=== PATIENT | female | born 1950 | race Caucasian/White ===

== ENCOUNTER 2017-09-16 05:05 | Emergency (ER) | payer MEDICARE ==
[2017-09-16 06:21] LABS: BILIRUBIN, URINE NEG (NEG); BLOOD, URINE NEG (NEG); GLUCOSE,URINE NEG (NEG); KETONE, URINE 10 mg/dL (NEG); MUCUS URINE FEW /lpf (OCC); NITRITE,URINE NEG (NEG); SQUAMOUS EPITHELIAL CELL URINE 1 /hpf (0-5); URINE COLOR YELLOW (YELLW/STRAW); URINE LEUKOCYTE ESTERASE NEG (NEG)
[2017-09-16 06:22] LABS: COMMENT (UR) CULT NOT INDICATED; CULTURE IF INDICATED CULT NOT INDICATED
[2017-09-16] MEDS: SODIUM CHLOR 0.9% 1000 ML INJ 1,000 ML IV (06:27)
[2017-09-16 06:34] LABS: BASOPHIL % 0.7 % (0.0-2.0); EOSINOPHIL # 0.1 TH/MM3 (0-0.4); EOSINOPHIL % 2.4 % (0.0-4.0); HEMO FLAGS DIFF FINAL; HEMOGLOBIN 13.7 GM/DL (11.6-15.3); LYMPH % 14.2 % (9.0-44.0); LYMPHOCYTE # 0.8 TH/MM3 (1.0-4.8); MEAN CELL VOLUME 80.6 FL (80.0-100.0); MEAN CORPUSCULAR HEMOGLOBIN 27.6 PG (27.0-34.0); MEAN CORPUSCULAR HGB CONC 34.2 % (32.0-36.0); MEAN PLATELET VOLUME 7.9 FL (7.0-11.0); MONO % 9.1 % (0.0-8.0); MONOCYTE # 0.5 TH/MM3 (0-0.9); NEUT % 73.6 % (16.0-70.0); PLATELET COUNT 222 TH/MM3 (150-450); RED BLOOD COUNT 4.97 MIL/MM3 (4.00-5.30); RED CELL DISTRIBUTION WIDTH 15.2 % (11.6-17.2); WHITE BLOOD COUNT 5.5 TH/MM3 (4.0-11.0)
[2017-09-16] MEDS: ONDANSETRON HCL 4 MG/2 ML VIAL IV (06:34)
[2017-09-16 07:30] LABS: BLOOD UREA NITROGEN 8 MG/DL (7-18); CREATININE 0.78 MG/DL (0.50-1.00); GLOMERULAR FILTRATION RATE 74 ML/MIN (>89); GLUCOSE,RANDOM 120 MG/DL (74-106); TOTAL PROTEIN 7.6 GM/DL (6.4-8.2)
[2017-09-16 07:31] LABS: ALKALINE PHOSPHATASE 80 U/L (45-117); ALT (GPT) 70 U/L (10-53); ANION GAP 8 MEQ/L (5-15); AST (GOT) 45 U/L (15-37); BICARBONATE 24.3 MEQ/L (21.0-32.0); C-REACTIVE PROTEIN 0.77 MG/DL (0.00-0.30); CALCIUM 8.7 MG/DL (8.5-10.1); CHLORIDE 108 MEQ/L (98-107); LIPASE 103 U/L (73-393); MAGNESIUM 2.2 MG/DL (1.5-2.5); POTASSIUM 3.7 MEQ/L (3.5-5.1); SODIUM (NA) 140 MEQ/L (136-145)
== END 2017-09-16 08:12 | disposition home or self-care (01) ==
LOC: NEPC 05:05
DX: J44.9 Chronic obstructive pulmonary disease, unspecified (principal); B34.9 Viral infection, unspecified; R11.0 Nausea; R00.0 Tachycardia, unspecified; Z79.82 Long term (current) use of aspirin
CPT/HCPCS: 71045; 80053; 81001; 83690; 83735; 85025; 86140; 87804; 87804-59; 93005; 96361; 96374; 99284-25

== ENCOUNTER 2018-05-24 18:15 | Observation (INO) ==
--- NOTE | 2018-05-24 19:38 | ED ---
HPI General Chief complaint: Medical Clearance Stated complaint: chest pain/SOB Time Seen by Provider: 05/24/18 19:00 History of Present Illness HPI narrative: 67-year-old woman presents with intermittent but persistent and increasing symptoms of palpitations, with a sensation that her heart is beating fast and extra strong, with some extra beats from time to time. She also has had a persistent discomfort in her left posterior chest, without any injury. She also has had a sense of unusual smells, overall sense of mild weakness or malaise, and initially had ascribe this to having recently been on prednisone prescribed for low back strain 3 weeks ago, but she has been off the prednisone , and symptoms have increased over the past couple of days, and she comes for further evaluation of this. She has had prior evaluation for palpitations, elsewhere, with no definite findings, but apparently had a mild heart murmur identified, which she said was from a "leaky valve", but otherwise has been stable. She is on no routine medications for her heart, but does get followed by a funeral director and embalmer. She has not had any prior myocardial infarction. She has no distinct chest pain, and the only altered sense is a sense of the pounding of the heart and awareness of the left side of her chest, which was present at time of examination, and during which potline monitor was followed, did show patient in a stable sinus rhythm, 87-96 bpm, not tachycardic and without ectopy , blood pressure stable 136/64. Past medical history significant for low back strain 3 weeks ago, treated by local physician with steroids, and prior back surgery 4 years ago. She has had various surgeries, including bilateral oophorectomy and hysterectomy for torsion , kidney stents, cholecystectomy. No recent history of prolonged travel, or prolonged immobilization, although she was less active while she was recuperating from her back strain. Patient also gives history of acute intermittent porphyria, but she has not been symptomatic. Related Data Home Medications Medication Instructions Recorded Confirmed aspirin [Aspir-Low] 81 mg PO DAILY 05/24/18 05/24/18 Allergies Allergy/AdvReac Type Severity Reaction Status Date / Time acetaminophen Allergy Severe Urinary Verified 05/24/18 18:46 Freq (Inc/Dec) codeine Allergy Severe Hives Verified 05/24/18 18:46 Fish Containing Products Allergy Severe Hives Verified 05/24/18 18:46 iodine Allergy Severe Hives Verified 05/24/18 18:46 meperidine Allergy Severe Hives Verified 05/24/18 18:46 morphine Allergy Severe Muscle Pain Verified 05/24/18 18:46 potassium iodide Allergy Severe Hives Verified 05/24/18 18:46 povidone-iodine Allergy Severe Hives Verified 05/24/18 18:46 propoxyphene Allergy Severe Hives Verified 05/24/18 18:46 sodium iodide Allergy Severe Hives Verified 05/24/18 18:46 sodium iodide Allergy Severe Hives Unverified 05/24/18 18:46 Review of Systems ROS: all other systems reviewed are negative Constitutional Denies chills, Denies fatigue, Denies fever(s), Denies headache(s), Reports malaise and Denies weakness Eyes Denies loss of vision ENT Denies throat swelling and Denies tongue swelling Cardiovascular Reports as per HPI, Denies diaphoresis, Reports rapid heart rate, Reports irregular heart rhythm, Denies leg edema, Reports palpitations and Reports dyspnea Respiratory Denies cough, Denies pain with cough and Reports dyspnea (mild sense of breathlessness) Gastrointestinal Denies abdominal pain Neurologic Denies vertigo, Denies headache(s), Denies numbness and Denies sensory deficit [facility] Medical History Medical History Chronic back pain (Acute) FH: cholecystectomy (Acute) Heart murmur (Acute) Kidney stones (Acute) Purpura (Acute) Surgical History Surgical History H/O oophorectomy (Acute) History of renal stent (Acute) History of repair of hiatal hernia (Acute) Previous back surgery (Acute) Social History Social History Substance History: No History of Abuse Second Hand Smoke Exposure: No Smoking Status: Former smoker How Often Do You Have a Drink Containing Alcohol: 2 to 4 times a month Recent Travel in [facility] within the Last 8 Weeks: No Recent Out of Country Travel within the Last 8 Weeks: No Immunization History Tetanus Immunization: >5 Years Hx Influenza Vaccine This Season: No Exam Narrative Exam Narrative: GENERAL: Elderly woman, awake and oriented, no acute distress, resting comfortably on stretcher, speaks easily, vital signs stable with blood pressure 136/64, heart rate 96 on arrival, 86 at the conclusion of interview, oxygen saturation 97%. SKIN: Focused skin assessment warm/dry. HEAD: Atraumatic. Normocephalic. EYES: Pupils equal and round. No scleral icterus. No injection or drainage. ENT: No nasal bleeding or discharge. Mucous membranes pink and moist. NECK: Trachea midline. No JVD. CARDIOVASCULAR: Regular rate and rhythm. No murmur appreciated. RESPIRATORY: No accessory muscle use. Clear to auscultation. Breath sounds equal bilaterally. GASTROINTESTINAL: Abdomen soft, non-tender, nondistended. Hepatic and splenic margins not palpable. MUSCULOSKELETAL: No obvious deformities. No clubbing. No cyanosis. No edema. NEUROLOGICAL: Awake and alert. No obvious cranial nerve deficits. Motor grossly within normal limits. Normal speech. PSYCHIATRIC: Appropriate mood and affect; insight and judgment normal. Course Reevaluation(s) Reevaluation #1: Patient stable on repeat examination, vital signs normal, heart rate stable without tachycardia. Cardiac labs are negative, EKG is normal , but her d-dimer is elevated. Patient's initially reports adverse reaction to iodine, but description initially sounded innocuous, as mild gastric upset, but on requestioning patient, she had been completing prior reactions, she had a discomfort not associated with intravenous dye injection, reported that she had a significant iodine reaction 25 years ago during an intravenous pyelogram, with clear-cut signs of anaphylaxis with throat swelling and generalized hives. Given this, patient can clearly not tolerate CT angiography, but requires alternate means of diagnosing possible pulmonary embolism. Time: 22:22 Initial Documented Vital Signs Temperature 97.7 F 05/24/18 18:25 Pulse Rate 93 H 05/24/18 18:25 Respiratory Rate 16 05/24/18 18:25 Blood Pressure 173/93 H 05/24/18 18:25 Pulse Oximetry 97 05/24/18 18:25 Last Documented Vital Signs Temperature 97.8 F 05/25/18 16:00 Pulse Rate 72 05/25/18 16:00 Respiratory Rate 18 05/25/18 16:00 Blood Pressure 133/81 05/25/18 16:00 Pulse Oximetry 97 05/25/18 16:00 Medical Decision Making MDM Narrative Medical decision making narrative: Patient has palpitations, but also with 3- day history of left posterior chest pain, with some sense of shortness of breath , with cardiac evaluation being negative, but d-dimer being elevated. 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 This is not available at time of night, and patient will need cardiac observation admission until VQ scan can be performed later in the morning tomorrow. Hospitalist, Dr. Bass, consulted, and will admit patient for observation and telemetry pending VQ scan. Medical Screen Exam Complete: Yes Emergency Medical Condition: Yes Differential Diagnosis Differential Diagnosis: Dysrhythmia, atrial fibrillation, myocardial infarction , pulmonary embolism Lab Data Result diagrams: 05/25/18 02:42 05/25/18 02:42 Lab Results 05/24/18 05/24/18 05/24/18 Range/Units 19:40 19:40 19:40 WBC 6.7 (4.0-11.0) th/mm3 RBC 5.16 (4.00-5.30) mil/mm3 Hgb 14.7 (11.6-15.3) gm/dL Hct 41.9 (35.0-46.0) % MCV 81.2 (80.0-100.0) fL MCH 28.4 (27.0-34.0) pg MCHC 35.0 (32.0-36.0) % RDW 15.1 (11.6-17.2) % Plt Count 244 (150-450) th/mm3 MPV 8.6 (7.0-11.0) fL Prelim Diff (Auto) Slide review pending Neut % (Auto) 60.4 (16.0-70.0) % Lymph % (Auto) 29.0 (9.0-44.0) % Frederick % (Auto) 7.1 (0.0-8.0) % Eos % (Auto) 2.7 (0.0-4.0) % Baso % (Auto) 0.8 (0.0-2.0) % Neut # (Auto) 4.0 (1.8-7.7) th/mm3 Lymph # (Auto) 1.9 (1.0-4.8) th/mm3 Frederick # (Auto) 0.5 (0.0-0.9) th/mm3 Eos # (Auto) 0.2 (0.0-0.4) th/mm3 Baso # (Auto) 0.1 (0.0-0.2) th/mm3 WBC Differential . Diff Scan Auto diff confirmed Differential Comment . Platelet Estimate Normal (Normal) Platelet Morphology Normal (Normal) RBC Morphology Normal (Normal) D-Dimer Quant (PE/DVT) 0.80 H (0.00-0.50) mg/L FEU Sodium 141 (136-145) meq/L Potassium 3.6 (3.5-5.1) meq/L Chloride 108 H (98-107) meq/L Carbon Dioxide 23.7 (21.0-32.0) meq/L Anion Gap 9 (5-15) meq/L BUN 14 (7-18) mg/dL Creatinine 0.75 (0.50-1.00) mg/dL Estimated GFR 78 L (>89) mL/min Random Glucose 118 H (74-106) mg/dL Calcium 8.6 (8.5-10.1) mg/dL Total Bilirubin 0.8 (0.2-1.0) mg/dL AST 38 H (15-37) U/L ALT 63 H (10-53) U/L Alkaline Phosphatase 108 (45-117) U/L Troponin I Less than 0.02 L (0.02-0.05) ng/mL Total Protein 7.7 (6.4-8.2) g/dL Albumin 3.8 (3.4-5.0) g/dL Triglycerides (42-150) mg/dL Cholesterol (120-200) mg/dL LDL Cholesterol, Calc (0-99) mg/dL HDL Cholesterol (40.0-60.0) mg/dL Cholesterol/HDL Ratio Ratio TSH (0.358-3.740) uIU/mL Free T4 (0.76-1.46) ng/dL Free T3 (2.18-3.98) pg/mL 05/25/18 05/25/18 05/25/18 Range/Units 02:42 02:42 06:10 WBC 5.1 (4.0-11.0) th/mm3 RBC 5.26 (4.00-5.30) mil/mm3 Hgb 14.5 (11.6-15.3) gm/dL Hct 42.8 (35.0-46.0) % MCV 81.4 (80.0-100.0) fL MCH 27.5 (27.0-34.0) pg MCHC 33.8 (32.0-36.0) % RDW 15.4 (11.6-17.2) % Plt Count 207 (150-450) th/mm3 MPV 7.7 (7.0-11.0) fL Prelim Diff (Auto) Neut % (Auto) 59.9 (16.0-70.0) % Lymph % (Auto) 30.7 (9.0-44.0) % Frederick % (Auto) 6.3 (0.0-8.0) % Eos % (Auto) 2.4 (0.0-4.0) % Baso % (Auto) 0.7 (0.0-2.0) % Neut # (Auto) 3.0 (1.8-7.7) th/mm3 Lymph # (Auto) 1.6 (1.0-4.8) th/mm3 Frederick # (Auto) 0.3 (0.0-0.9) th/mm3 Eos # (Auto) 0.1 (0.0-0.4) th/mm3 Baso # (Auto) 0.0 (0.0-0.2) th/mm3 WBC Differential . Diff Scan Differential Comment Auto diff final Platelet Estimate (Normal) Platelet Morphology (Normal) RBC Morphology (Normal) D-Dimer Quant (PE/DVT) (0.00-0.50) mg/L FEU Sodium 145 (136-145) meq/L Potassium 3.2 L (3.5-5.1) meq/L Chloride 110 H (98-107) meq/L Carbon Dioxide 24.7 (21.0-32.0) meq/L Anion Gap 10 (5-15) meq/L BUN 12 (7-18) mg/dL Creatinine 0.66 (0.50-1.00) mg/dL Estimated GFR Greater than 89 (>89) mL/min Random Glucose 111 H (74-106) mg/dL Calcium 9.0 (8.5-10.1) mg/dL Total Bilirubin 0.7 (0.2-1.0) mg/dL AST 25 (15-37) U/L ALT 60 H (10-53) U/L Alkaline Phosphatase 107 (45-117) U/L Troponin I Less than 0.02 L Less than 0.02 L (0.02-0.05) ng/mL Total Protein 7.6 (6.4-8.2) g/dL Albumin 4.0 (3.4-5.0) g/dL Triglycerides 116 (42-150) mg/dL Cholesterol 142 (120-200) mg/dL LDL Cholesterol, Calc 87 (0-99) mg/dL HDL Cholesterol 31.9 L (40.0-60.0) mg/dL Cholesterol/HDL Ratio 4.45 Ratio TSH 1.290 (0.358-3.740) uIU/mL Free T4 1.18 (0.76-1.46) ng/dL Free T3 3.50 (2.18-3.98) pg/mL Imaging Data Radiologist's impression: Chest X-Ray 05/24/18 19:39 CONCLUSION: The lungs are clear. Pulmonary Perfusion Imaging 05/25/18 00:00 CONCLUSION: Ventilation and perfusion images are within normal limits. Examination is low probability for PE. Discharge Plan Discharge Disposition Patient Disposition: 30 Still Patient Discharge Condition Condition: Stable Discharge Order Discharge Orders: Discharge Order (Routine); Ordered 05/25/18 Ordered By: Falguni Singleton Discharge Details Anticipated Discharge Date: 05/25/18 Diagnosis: Chest pain, Palpitation Physicians Team ED Provider: Stanislav Miles Primary Care Provider: UNKNOWN, Attending Provider: Raimundo Brown Status ED Status: Left Department Discharge Information Discharge Date/Time: 05/25/18 01:52
[2018-05-24 19:51] LABS: Baso # (Auto) 0.1 th/mm3 (0.0-0.2); Baso % (Auto) 0.8 % (0.0-2.0); Eos # (Auto) 0.2 th/mm3 (0.0-0.4); Eos % (Auto) 2.7 % (0.0-4.0); Hematocrit 41.9 % (35.0-46.0); Hemoglobin 14.7 gm/dL (11.6-15.3); Lymph # (Auto) 1.9 th/mm3 (1.0-4.8); Mean Corpuscular Hemoglobin 28.4 pg (27.0-34.0); Mean Corpuscular Volume 81.2 fL (80.0-100.0); Mean Platelet Volume 8.6 fL (7.0-11.0); Mono # (Auto) 0.5 th/mm3 (0.0-0.9); Mono % (Auto) 7.1 % (0.0-8.0); Neut % (Auto) 60.4 % (16.0-70.0); Platelet Count 244 th/mm3 (150-450); Red Blood Count 5.16 mil/mm3 (4.00-5.30); Red Cell Distribution Width 15.1 % (11.6-17.2); White Blood Count 6.7 th/mm3 (4.0-11.0)
[2018-05-24 20:10] LABS: Alanine Aminotransferase 63 U/L (10-53)
[2018-05-24 20:13] LABS: Albumin 3.8 g/dL (3.4-5.0); Anion Gap 9 meq/L (5-15); Aspartate Aminotransferase 38 U/L (15-37); Blood Urea Nitrogen 14 mg/dL (7-18); Calcium 8.6 mg/dL (8.5-10.1); Carbon Dioxide 23.7 meq/L (21.0-32.0); Chloride 108 meq/L (98-107); Glomerular Filtration Rate 78 mL/min (>89); Glucose,Random 118 mg/dL (74-106); Sodium 141 meq/L (136-145)
[2018-05-24 20:14] LABS: Alkaline Phosphatase 108 U/L (45-117); Total Protein 7.7 g/dL (6.4-8.2)
[2018-05-24 20:19] LABS: Potassium 3.6 meq/L (3.5-5.1)
[2018-05-24 20:20] LABS: Platelet Estimate Normal (Normal); Platelet Morphology Normal (Normal); RBC Morphology Normal (Normal)
--- NOTE | 2018-05-24 20:25 | XR ---
EXAM DATE: 05/24/2018 7:39 PM EDT AGE/SEX: 67 years / Female INDICATIONS: Palpitations. CLINICAL DATA: This is the patient's initial encounter. Patient reports that signs and symptoms have been present for 2 days and indicates a pain score of 0/10. MEDICAL/SURGICAL HISTORY: Asthma. Cholecystectomy. Liver surgery. COMPARISON: [facility], CHEST SINGLE AP, 09/16/2017. . FINDINGS: A single AP view of the chest demonstrates the lungs to be symmetrically aerated without evidence of mass, infiltrate or effusion. Stable eventration of the right hemidiaphragm. The cardiomediastinal c ontours are unremarkable. Osseous structures are intact. CONCLUSION: The lungs are clear. Electronically signed by: Vasu Wright MD 05/24/2018 8:24 PM EDT
--- NOTE | 2018-05-24 21:30 | ECG ---
Date Performed: 05/24/2018 Time Performed: 18:41:34 PTAGE: 67 years EKG: Baseline artifact present Sinus rhythm LOW QRS VOLTAGE IN PRECORDIAL LEADS BORDERLINE ECG No significant change from prior electrocardiogra m. PREVIOUS TRACING : 09/16/2017 05.44 DOCTOR: Kee Renteria Interpretating Date/Time 05/28/2018 07:23:09
[2018-05-24] MEDS ORDERED: Bisacodyl 10 MG Supp RECTAL PRN (22:44)
--- NOTE | 2018-05-24 22:47 | P.HPIM ---
History of Present Illness Primary Care Physician: UNKNOWN History of Present Illness: This is a 67-year-old female with a PMH of Chronic Back Pain who presented to the ER with complaints of palpitations and chest pain starting earlier today. Pt states she injured her back approx 3wks ago after lifting a heavy plant pot, had been taking Prednisone x1 wk w/ improvement in symptoms, states 2-3 days after she stopped Prednisone she noted intermittent episodes of palpitations. She attributed symptoms to possible "withdrawal" from stopping Prednisone abruptly, and took 1/4 tablet Prednisone, initially w/ improvement in palpitations. Today, she had recurrent palpitations, took another 1/4 tablet of Prednisone, however symptoms did not resolve. Also notes associated left- sided chest pain, moderate, 6/10, non-radiating and reports she's been " smelling car exhaust all day". No h/o similar symptoms. On arrival, BP 173/93 , HR 93, O2 sat 97% on RA, Afebrile. CBC unremarkable. D-dimer 0.8. Chemistry essentially unremarkable. Mildly elevated LFTs. Troponin negative. CXR with no acute findings. Pt unable to undergo CTA Chest due to Severe contrast ALLERGY. V/Q pending. - Diagnosis (1) Palpitation (2) Chest pain (3) Elevated d-dimer Review of Systems PAST FAMILY HISTORY: Reviewed. No h/o DM or CAD All other systems reviewed negative except as stated in HPI [facility] - History History Provided By: Patient - Medical History Medical History: Medical History (Last Reviewed 05/24/18 @ 22:22 by Stanislav Miles) Chronic back pain FH: cholecystectomy Heart murmur Kidney stones Purpura - Surgical History Surgical History: Surgical History (Last Reviewed 05/24/18 @ 22:22 by Stanislav Miles) H/O oophorectomy History of renal stent History of repair of hiatal hernia Previous back surgery - Tobacco History Second Hand Smoke Exposure: No Tobacco Use In Past 30 Days: No Smoking Status: Never smoker - Alcohol History How Often Do You Have a Drink Containing Alcohol: 2 to 4 times a month - Substance Use History Substance History: No History of Abuse - Travel History Recent Travel in the [place] Within the Last 8 Weeks: No Recent Travel Out of the Country Within the Last 8 Weeks: No - Immunization History Tetanus Immunization: >5 Years Hx Influenza Vaccine This Season: No Medications and Allergies Allergies Allergy/AdvReac Type Severity Reaction Status Date / Time acetaminophen Allergy Severe Urinary Verified 05/24/18 18:46 Freq (Inc/Dec) codeine Allergy Severe Hives Verified 05/24/18 18:46 Fish Containing Products Allergy Severe Hives Verified 05/24/18 18:46 iodine Allergy Severe Hives Verified 05/24/18 18:46 meperidine Allergy Severe Hives Verified 05/24/18 18:46 morphine Allergy Severe Muscle Pain Verified 05/24/18 18:46 potassium iodide Allergy Severe Hives Verified 05/24/18 18:46 povidone-iodine Allergy Severe Hives Verified 05/24/18 18:46 propoxyphene Allergy Severe Hives Verified 05/24/18 18:46 sodium iodide Allergy Severe Hives Verified 05/24/18 18:46 sodium iodide Allergy Severe Hives Unverified 05/24/18 18:46 Home Medications Medication Instructions Recorded Confirmed Type aspirin [Aspir-Low] 81 mg PO DAILY 05/24/18 05/24/18 History prednisone 5 mg PO TID 05/24/18 05/24/18 History Exam Vital signs: Vital Signs 05/24/18 18:25 05/24/18 18:49 Temperature 97.7 F Pulse Rate 93 H 90 Respiratory Rate 16 20 Blood Pressure 173/93 H 182/85 H Pulse Oximetry 97 97 Intake & Output 05/24/18 05/24/18 05/25/18 06:59 18:59 06:59 Weight 79.379 kg Narrative: PE: GENERAL: Pleasant middle-aged white female in no acute distress. SKIN: Focused skin assessment warm and dry. HEENT: PERRLA, EOMI. No scleral icterus or conjunctival pallor. No lid lag or facial droop. CARDIOVASCULAR: Regular rate and rhythm. No obvious murmurs to auscultation. No chest tenderness to palpation. RESPIRATORY: No obvious rhonchi or wheezing. Clear to auscultation. Breath sounds equal bilaterally. GASTROINTESTINAL: Abdomen soft, non-tender, nondistended. BS normal. MUSCULOSKELETAL: Extremities without clubbing, cyanosis, or edema. No obvious deformities. NEUROLOGICAL: Awake, alert and oriented x4. No focal neurologic deficits. Moving both upper and lower extremities spontaneously. PSYCHIATRIC: Appropriate mood and affect. Insight and judgment normal. Results - Labs CBC & Chem 7: 05/24/18 19:40 05/24/18 19:40 Labs: Short CBC 05/24/18 Range/Units 19:40 WBC 6.7 (4.0-11.0) th/mm3 Hgb 14.7 (11.6-15.3) gm/dL Hct 41.9 (35.0-46.0) % Plt Count 244 (150-450) th/mm3 BMP 05/24/18 19:40 Sodium 141 Potassium 3.6 Chloride 108 H Carbon Dioxide 23.7 BUN 14 Creatinine 0.75 Calcium 8.6 Cardiac Enzymes 05/24/18 Range/Units 19:40 Troponin I Less than 0.02 L (0.02-0.05) ng/mL Liver Function 05/24/18 Range/Units 19:40 Total Bilirubin 0.8 (0.2-1.0) mg/dL AST 38 H (15-37) U/L ALT 63 H (10-53) U/L Alkaline Phosphatase 108 (45-117) U/L Albumin 3.8 (3.4-5.0) g/dL - Imaging Impressions Chest X-Ray 05/24/18 19:39 CONCLUSION: The lungs are clear. Caprini VTE Risk Assessment Caprini VTE Risk Assessment: No/Low Risk (score <= 1) Caprini Risk Assessment Model: Point Value = 1 Point Value = 2 Point Value = 3 Point Value = 5 Age 41-60 Minor surgery BMI > 25 kg/m2 Swollen legs Varicose veins or History of unexplained or recurrent spontaneous Oral contraceptives or hormone replacement Sepsis (< 1 month) Serious lung disease, including pneumonia (< 1 month) Abnormal pulmonary function Acute myocardial infarction Congestive heart failure (< 1 month) History of inflammatory bowel disease Medical patient at bed rest Age 61-74 Arthroscopic surgery Major open surgery (> 45 min) Laparoscopic surgery (> 45 min) Malignancy Confined to bed (> 72 hours) Immobilizing plaster cast Central venous access Age >= 75 History of VTE Family history of VTE Factor V Leiden Prothrombin [id number] Lupus anticoagulant Anticardiolipin antibodies Elevated serum homocysteine Heparin-induced thrombocytopenia Other congenital or acquired thrombophilia Stroke (< 1 month) Elective arthroplasty Hip, pelvis, or leg fracture Acute spinal cord injury (< 1 month) Prophylaxis Regimen: Total Risk Factor Score Risk Level Prophylaxis Regimen 0-1 Low Early ambulation 2 Moderate Order ONE of the following: *Sequential Compression Device (SCD) *Heparin 5000 units SQ BID 3-4 Higher Order ONE of the following medications: *Heparin 5000 units SQ TID *Enoxaparin/Lovenox 40 mg SQ daily (WT < 150 kg, CrCl > 30 mL/min) *Enoxaparin/Lovenox 30 mg SQ daily (WT < 150 kg, CrCl > 10-29 mL/min) *Enoxaparin/Lovenox 30 mg SQ BID (WT < 150 kg, CrCl > 30 mL/min) AND/OR *Sequential Compression Device (SCD) 5 or more Highest Order ONE of the following medications: *Heparin 5000 units SQ TID (Preferred with Epidurals) *Enoxaparin/Lovenox 40 mg SQ daily (WT < 150 kg, CrCl > 30 mL/min) *Enoxaparin/Lovenox 30 mg SQ daily (WT < 150 kg, CrCl > 10-29 mL/min) *Enoxaparin/Lovenox 30 mg SQ BID (WT < 150 kg, CrCl > 30 mL/min) AND *Sequential Compression Device (SCD) Assessment and Plan - Assessment (1) Palpitation Code(s): R00.2 - Palpitations Status: Acute (2) Chest pain Code(s): R07.9 - Chest pain, unspecified Status: Acute (3) Elevated d-dimer Code(s): R79.89 - Other specified abnormal findings of blood chemistry Status : Acute - Plan A/P: 1. Palpitations: c/o intermittent palpitations, possibly related to recent Prednisone therapy. Place on telemetry to eval for possible arrhythmia, check TSH/T3/T4, check Echo to eval for underlying valvular abnormality/ cardiomyopathy. 2. Chest Pain: likely secondary to above, now chest pain free. Initial trop negative, check serial cardiac enzymes, check Lipid Profile, ASA, Statin, Metoprolol. 3. Elevated D-Dimer: 0.80, non-specific, unable to undergo CTA Chest due to severe contrast ALLERGY, will obtain V/Q. 4. DVT Prophylaxis: SCD/Teds 5. Social work for d/c planning as needed. 6. Case discussed w/ ER physician at length, labs/records/imaging reviewed by me. (2) Chest pain Qualifiers: Chest pain type: chest pain on breathing Qualified Code(s): R07.1 - Chest pain on breathing; R07.81 - Pleurodynia
[2018-05-25] MEDS: Sod Chloride 0.9% Inj 1,000 ML IV.CONT SCH ×2 (00:46→11:15)
[2018-05-25 03:06] LABS: Baso % (Auto) 0.7 % (0.0-2.0); Eos # (Auto) 0.1 th/mm3 (0.0-0.4); Eos % (Auto) 2.4 % (0.0-4.0); Hematocrit 42.8 % (35.0-46.0); Hemoglobin 14.5 gm/dL (11.6-15.3); Lymph # (Auto) 1.6 th/mm3 (1.0-4.8); Lymph % (Auto) 30.7 % (9.0-44.0); Mean Corpuscular HGB Conc 33.8 % (32.0-36.0); Mean Corpuscular Hemoglobin 27.5 pg (27.0-34.0); Mean Corpuscular Volume 81.4 fL (80.0-100.0); Mean Platelet Volume 7.7 fL (7.0-11.0); Mono # (Auto) 0.3 th/mm3 (0.0-0.9); Mono % (Auto) 6.3 % (0.0-8.0); Neut % (Auto) 59.9 % (16.0-70.0); Platelet Count 207 th/mm3 (150-450); Red Blood Count 5.26 mil/mm3 (4.00-5.30); Red Cell Distribution Width 15.4 % (11.6-17.2); White Blood Count 5.1 th/mm3 (4.0-11.0)
[2018-05-25 03:28] LABS: Alanine Aminotransferase 60 U/L (10-53); Anion Gap 10 meq/L (5-15); Aspartate Aminotransferase 25 U/L (15-37); Blood Urea Nitrogen 12 mg/dL (7-18); Carbon Dioxide 24.7 meq/L (21.0-32.0); Chloride 110 meq/L (98-107); Cholesterol 142 mg/dL (120-200); Glomerular Filtration Rate Greater Than 89 mL/min (>89); Glucose,Random 111 mg/dL (74-106); Potassium 3.2 meq/L (3.5-5.1); Sodium 145 meq/L (136-145); Triglycerides 116 mg/dL (42-150)
[2018-05-25 03:37] LABS: Alkaline Phosphatase 107 U/L (45-117); Chol/HDL Ratio 4.45 Ratio; Free T4 (Free Thyroxine) 1.18 ng/dL (0.76-1.46); HDL Cholesterol 31.9 mg/dL (40.0-60.0); LDL Cholesterol,Calculated 87 mg/dL (0-99); Total Protein 7.6 g/dL (6.4-8.2)
[2018-05-25] MEDS ORDERED: Senna/Docusate Sodium 8.6/50 MG Tablet PO SCH (09:00)
[2018-05-25] MEDS ORDERED: Metoprolol Tartrate 25 MG Tablet PO SCH (09:00)
--- NOTE | 2018-05-25 09:43 | ECG ---
Date Performed: 05/25/2018 Time Performed: 06:26:07 PTAGE: 67 years EKG: Sinus rhythm MINIMAL ST DEPRESSION BORDERLINE ECG No significant change from prior electrocardiogram. DOCTOR: Kee Renteria Interpretating Date/Time 05/25/2018 09:41:58
--- NOTE | 2018-05-25 09:45 | P.PN ---
Subjective Interval history: All of her palpitations and chest pain. Patient is currently resting in bed. Denies any chest pain, shortness of breath, fever or chills. She does not have palpitations anymore. Physical Exam Vital signs: Vital Signs 05/24/18 18:25 05/24/18 18:49 05/24/18 22:30 Temperature 97.7 F Pulse Rate 93 H 90 84 Respiratory Rate 16 20 20 Blood Pressure 173/93 H 182/85 H 161/70 H Pulse Oximetry 97 97 98 05/24/18 23:54 05/25/18 03:19 05/25/18 08:00 Temperature 98.0 F 97.7 F Pulse Rate 79 80 72 Respiratory Rate 20 18 16 Blood Pressure 157/79 H 130/76 139/82 Pulse Oximetry 98 97 96 05/25/18 09:05 Temperature Pulse Rate 70 Respiratory Rate Blood Pressure Pulse Oximetry Intake & Output 05/24/18 05/25/18 05/25/18 18:59 06:59 18:59 Intake Total 0 / 0 Balance 0 / 0 Weight 79.379 kg Intake: Oral 0 / 0 Other: # Voids 2 1 Narrative: GENERAL: Pleasant middle-aged white female in no acute distress. SKIN: Focused skin assessment warm and dry. HEENT: PERRLA, EOMI. No scleral icterus or conjunctival pallor. No lid lag or facial droop. CARDIOVASCULAR: Regular rate and rhythm. No obvious murmurs to auscultation. No chest tenderness to palpation. RESPIRATORY: No obvious rhonchi or wheezing. Clear to auscultation. Breath sounds equal bilaterally. GASTROINTESTINAL: Abdomen soft, non-tender, nondistended. BS normal. MUSCULOSKELETAL: Extremities without clubbing, cyanosis, or edema. No obvious deformities. NEUROLOGICAL: Awake, alert and oriented x4. No focal neurologic deficits. Moving both upper and lower extremities spontaneously. PSYCHIATRIC: Appropriate mood and affect. Insight and judgment normal. Results - Labs CBC & Chem 7: 05/25/18 02:42 05/25/18 02:42 Laboratory Results - last 24 hr 05/24/18 05/24/18 05/24/18 19:40 19:40 19:40 WBC 6.7 RBC 5.16 Hgb 14.7 Hct 41.9 MCV 81.2 MCH 28.4 MCHC 35.0 RDW 15.1 Plt Count 244 MPV 8.6 Prelim Diff (Auto) Slide review pending Neut % (Auto) 60.4 Lymph % (Auto) 29.0 [place] % (Auto) 7.1 Eos % (Auto) 2.7 Baso % (Auto) 0.8 Neut # (Auto) 4.0 Lymph # (Auto) 1.9 [place] # (Auto) 0.5 Eos # (Auto) 0.2 Baso # (Auto) 0.1 WBC Differential . Diff Scan Auto diff confirmed Differential Comment . Platelet Estimate Normal Platelet Morphology Normal RBC Morphology Normal D-Dimer Quant (PE/DVT) 0.80 H Sodium 141 Potassium 3.6 Chloride 108 H Carbon Dioxide 23.7 Anion Gap 9 BUN 14 Creatinine 0.75 Estimated GFR 78 L Random Glucose 118 H Calcium 8.6 Total Bilirubin 0.8 AST 38 H ALT 63 H Alkaline Phosphatase 108 Troponin I Less than 0.02 L Total Protein 7.7 Albumin 3.8 Triglycerides Cholesterol LDL Cholesterol, Calc HDL Cholesterol Cholesterol/HDL Ratio TSH Free T4 Free T3 05/25/18 05/25/18 05/25/18 02:42 02:42 06:10 WBC 5.1 RBC 5.26 Hgb 14.5 Hct 42.8 MCV 81.4 MCH 27.5 MCHC 33.8 RDW 15.4 Plt Count 207 MPV 7.7 Prelim Diff (Auto) Neut % (Auto) 59.9 Lymph % (Auto) 30.7 [place] % (Auto) 6.3 Eos % (Auto) 2.4 Baso % (Auto) 0.7 Neut # (Auto) 3.0 Lymph # (Auto) 1.6 [place] # (Auto) 0.3 Eos # (Auto) 0.1 Baso # (Auto) 0.0 WBC Differential . Diff Scan Differential Comment Auto diff final Platelet Estimate Platelet Morphology RBC Morphology D-Dimer Quant (PE/DVT) Sodium 145 Potassium 3.2 L Chloride 110 H Carbon Dioxide 24.7 Anion Gap 10 BUN 12 Creatinine 0.66 Estimated GFR Greater than 89 Random Glucose 111 H Calcium 9.0 Total Bilirubin 0.7 AST 25 ALT 60 H Alkaline Phosphatase 107 Troponin I Less than 0.02 L Less than 0.02 L Total Protein 7.6 Albumin 4.0 Triglycerides 116 Cholesterol 142 LDL Cholesterol, Calc 87 HDL Cholesterol 31.9 L Cholesterol/HDL Ratio 4.45 TSH 1.290 Free T4 1.18 Free T3 3.50 - Imaging Impressions Chest X-Ray 05/24/18 19:39 CONCLUSION: The lungs are clear. Assessment and Plan - Assessment (1) Palpitation Code(s): R00.2 - Palpitations Status: Acute (2) Chest pain Code(s): R07.9 - Chest pain, unspecified Status: Acute (3) Elevated d-dimer Code(s): R79.89 - Other specified abnormal findings of blood chemistry Status : Acute - Plan This is a 67-year-old female with a PMH of Chronic Back Pain who presented to the ER with complaints of palpitations and chest pain starting on 05/24/2018. On arrival, BP 173/93, HR 93, O2 sat 97% on RA, Afebrile. CBC unremarkable. D- dimer 0.8. Chemistry essentially unremarkable. Mildly elevated LFTs. Troponin negative. CXR with no acute findings. Pt unable to undergo CTA Chest due to Severe contrast ALLERGY. V/Q scan ordered. Acute chest pain Palpitation - Patient's symptoms are somewhat non-specific. - Troponins x 3 negative. - V/Q scan pending. - Echo pending. - EKG this morning shows NSR. - Continue Aspirin 81mg Qday, Metoprolol 12.5mg BID and Pravastatin 40mg. Mild hypokalemia - Will replace with PO KCL Full code. SCDs. (2) Chest pain Qualifiers: Chest pain type: chest pain on breathing Qualified Code(s): R07.1 - Chest pain on breathing; R07.81 - Pleurodynia
--- NOTE | 2018-05-25 09:48 | ECG ---
Date Performed: 05/25/2018 Time Performed: 03:12:06 PTAGE: 67 years EKG: Sinus rhythm NORMAL ECG No significant change from prior electrocardiogram. PREVIOUS TRACING : 05/24/2018 18.41 DOCTOR: Kee Renteria Interpretating Date/Time 05/25/2018 09:46:50
--- NOTE | 2018-05-25 11:50 | ECG ---
Date Performed: 05/25/2018 Time Performed: 08:59:31 PTAGE: 67 years EKG: Sinus rhythm NORMAL ECG No significant change from prior electrocardiogram. PREVIOUS TRACING : 05/25/2018 06.26 DOCTOR: Kee Renteria Interpretating Date/Time 05/25/2018 11:49:46
--- NOTE | 2018-05-25 12:04 | NM ---
EXAM DATE: 05/25/2018 10:58 AM EDT AGE/SEX: 67 years / Female INDICATIONS: Chest pain with shortness of breath for one week. CLINICAL DATA: This is the patient's initial encounter. Patient reports that signs and symptoms have been present for 1 day and indicates a pain score of 2/10. MEDICAL/SURGICAL HISTORY: None. Cholecystectomy. Hysterectomy. Umbilical hernia repair. COMPARISON: No prior exams available for comparison. No external comparison. DOSE: 1.1 mCi Tc99m DTPA aerosol 8.7 mCi Tc99m MAA IV TECHNIQUE: Following five minutes of tidal breathing of DTPA aerosol, planar images of the lungs wer e performed in eight projections. The patient was then injected with MAA, and eight-view perfusion s can was performed. FINDINGS: There is a homogeneous pattern of aerosol delivery to the periphery of both lungs. No focal ventilat ory defects are seen. The perfusion lung scan demonstrates a homogenous pattern of uptake in both lungs. No segmental or s ubsegmental defects are seen. CONCLUSION: Ventilation and perfusion images are within normal limits. Examination is low probability for PE. Electronically signed by: Yan Stokes MD 05/25/2018 12:02 PM EDT
[2018-05-25 13:00] VITALS: O2SAT 97
[2018-05-25 17:48] VITALS: BP 133/81; PULSE 72; RESP 18; TEMP 97.8
--- NOTE | 2018-05-25 18:24 | ECHRPT ---
Indication: CARDIOMYOPATHY CONCLUSIONS The left ventricular systolic function is hyperdynamic with an estimated ejection fraction in the ra nge of 65- 70%. Normal left ventricular size. Wall thickness is normal. No regional wall motion abnormalities are present. The pulmonary valve is not well visualized. BP: / HR: Rhythm: Sinus MEASUREMENTS (Male / Female) Normal Values Technical Quality:Good 2D ECHO LV Diastolic Diameter PLAX 4.3 cm 4.2 - 5.9 / 3.9 - 5.3 cm LV Systolic Diameter PLAX 2.9 cm IVS Diastolic Thickness 1.0 cm 0.6 - 1.0 / 0.6 - 0.9 cm LVPW Diastolic Thickness 1.1 cm 0.6 - 1.0 / 0.6 - 0.9 cm LV Relative Wall Thickness 0.5 RV Internal Dim ED PLAX 2.5 cm LVOT Diameter 1.9 cm LA Systolic Diameter LX 3.2 cm 3.0 - 4.0 / 2.7 - 3.8 cm LV Ejection Fraction MOD 4C 70.4 % LV Ejection Fraction 4C AL 70.8 % M-MODE Aortic Root Diameter MM 2.1 cm LA Systolic Diameter MM 3.3 cm LA Ao Ratio MM 1.6 AV Cusp Separation MM 1.5 cm DOPPLER AV Peak Velocity 111.0 cm/s AV Peak Gradient 4.9 mmHg LVOT Peak Velocity 98.2 cm/s LVOT Peak Gradient 3.9 mmHg AV Area Cont Eq pk 2.5 cm MV Area PHT 3.3 cm Mitral E Point Velocity 77.0 cm/s Mitral A Point Velocity 69.6 cm/s Mitral E to A Ratio 1.1 LV E' Lateral Velocity 7.6 cm/s Mitral E to LV E' Lateral Ratio 10.1 LV E' Septal Velocity 4.8 cm/s Mitral E to LV E' Septal Ratio 16.1 PV Peak Velocity 82.8 cm/s PV Peak Gradient 2.7 mmHg FINDINGS LEFT VENTRICLE The left ventricular systolic function is hyperdynamic with an estimated ejection fraction in the ra nge of 65- 70%. Normal left ventricular size. Wall thickness is normal. No regional wall motion abnormalities are present. RIGHT VENTRICLE Normal right ventricular size and systolic function. LEFT ATRIUM The left atrial size is normal. RIGHT ATRIUM The right atrial size is normal. ATRIAL SEPTUM Normal atrial septal thickness without atrial level shunting by limited color doppler interrogation. AORTA The aortic root and proximal ascending aorta are normal in size on limited imaging. MITRAL VALVE Structurally normal mitral valve. No mitral valve stenosis or regurgitation. AORTIC VALVE Trileaflet aortic valve. No aortic valve stenosis or regurgitation. TRICUSPID VALVE Structurally normal tricuspid valve. No tricuspid valve stenosis or regurgitation. PULMONARY VALVE The pulmonary valve is not well visualized. VESSELS The inferior vena cava is normal in size. PERICARDIUM No pericardial effusion. Drew Seaman MD (Electronically Signed) Final Date:25 May 2018 18:23
== END 2018-05-25 18:18 | disposition home or self-care (01) ==
LOC: NEPC 18:15 → NEDA 18:15 → NEPGCP 05-25 01:33
PROVIDERS: ADMIT Hospitalist; ATTEND Hospitalist